=== PATIENT | female | born 1940 | race Caucasian/White ===

== ENCOUNTER → 2019-11-01 | Outpatient (CLI) | payer OTHER | LOC: LAB 12:04 | PROVIDERS: ATTEND Family Medicine | DX: R05 Cough (principal); R06.02 Shortness of breath ==

== ENCOUNTER → 2020-10-08 | Outpatient (CLI) | payer OTHER | LOC: RAD 10:51 | PROVIDERS: ATTEND Internal Medicine Pulmonary Disease | DX: K44.9 Diaphragmatic hernia without obstruction or gangrene (principal); R06.00 Dyspnea, unspecified ==

== ENCOUNTER → 2020-10-13 | Outpatient (CLI) | payer OTHER | LOC: CAT 08:15 | PROVIDERS: ATTEND Internal Medicine Pulmonary Disease | DX: U07.1 COVID-19 (principal); R05 Cough; R06.00 Dyspnea, unspecified; J30.9 Allergic rhinitis, unspecified; K21.9 Gastro-esophageal reflux disease without esophagitis; J40 Bronchitis, not specified as acute or chronic; K44.9 Diaphragmatic hernia without obstruction or gangrene; N28.1 Cyst of kidney, acquired; M25.78 Osteophyte, vertebrae; M48.04 Spinal stenosis, thoracic region ==